=== PATIENT | female | born 2000 | race Caucasian/White ===

== ENCOUNTER 2023-05-10 19:29 | Inpatient (IN) | payer OTHER ==
[2023-05-10] MEDS ORDERED: Water For Irrigation,Sterile 1,000 ML Container IRR PRN (20:55)
[2023-05-10] MEDS ORDERED: Lidocaine 1% 50 ML MDV INJECT PRN (20:55)
[2023-05-10] MEDS ORDERED: Sodium Chloride 0.9% 2.5 ML Syringe FLUSH PRN (20:55)
[2023-05-10] MEDS ORDERED: Methylergonovine 0.2 MG/1 ML Amp IM PRN (20:55)
[2023-05-10] MEDS ORDERED: Misoprostol 200 MCG Tab PO PRN (20:55)
[2023-05-10] MEDS ORDERED: Sodium Chloride 0.9% 20 ML SDV IV PRN (20:55)
[2023-05-10] MEDS ORDERED: Ondansetron 4 MG/2 ML SDV IVPUSH PRN (20:55)
[2023-05-10] MEDS ORDERED: Carboprost Tromethamine 250 MCG/1 mL Vial IM PRN (20:55)
[2023-05-10] MEDS ORDERED: Tranexamic Acid IN NACL,ISO-OS 1,000 MG in Premix Bag 1 BAG IV PRN ×2 (20:55)
[2023-05-10] MEDS ORDERED: Sodium Chloride 0.9% 10 ML Syringe FLUSH PRN (20:55)
[2023-05-10] MEDS ORDERED: Terbutaline 1 MG/ML SDV SUBCUT PRN (20:55)
[2023-05-10] MEDS ORDERED: Oxytocin/0.9 % Sodium Chloride 30 UNIT/500 ML BAG IV SCH ×2 (21:00)
[2023-05-10 21:09] LABS: HEMATOCRIT 33.8 % (37.0-47.0); HEMOGLOBIN 11.6 g/dL (12.0-16.0); MEAN CORPUSCULAR HEMOGLOBIN 28.9 pg (28.0-32.0); MEAN CORPUSCULAR HGB CONC 34.3 g/dL (32.0-36.0); MEAN CORPUSCULAR VOLUME 84.1 fL (83.0-99.0); MEAN PLATELET VOLUME 10.5 fL (9.4-12.3); PLATELET COUNT,PLT 264 K/uL (150-400); RED BLOOD CELL COUNT 4.02 M/uL (4.10-5.30); WHITE BLOOD CELL COUNT,WBC 10.16 K/uL (3.9-11.3)
[2023-05-10] MEDS ORDERED: Nalbuphine 10 MG/0.5 ML Syringe IVPUSH SCH (21:15)
[2023-05-10] MEDS ORDERED: Misoprostol 25 MCG (1/4 of 100 MCG) Tab VAG PRN (22:00)
[2023-05-10] MEDS ORDERED: Ampicillin 2 GM in Sodium Chloride 0.9% 100 ML IV ONE (22:00)
[2023-05-10] MEDS ORDERED: ePHEDrine 50 MG/ML SDV IVPUSH PRN ×2 (22:39)
[2023-05-10] MEDS ORDERED: Phenylephrine HCl 0.5 MG/5 ML AMP IVPUSH PRN (22:39)
[2023-05-10] MEDS ORDERED: Ropivacaine HCl/PF 400 MG in Premix Bag 1 BAG EPIDUR SCH (22:45)
[2023-05-11] MEDS: Lactated Ringers 1,000 ML IV SCH ×2 (00:09→15:03)
[2023-05-11 00:16] LABS: AMPHETAMINES SCREEN, URINE NEGATIVE (CUTOFF=500); BARBITURATE SCREEN,URINE NEGATIVE (CUTOFF=200); BENZODIAZEPINES SCREEN,URINE NEGATIVE (CUTOFF=150); BUPRENORPHINE SCREEN,URINE NEGATIVE (CUTOFF=10); METHADONE SCREEN, URINE NEGATIVE (CUTOFF=200); METHAMPHETAMINES SCREEN, URINE NEGATIVE (CUTOFF=500); OXYCODONE SCREEN,URINE NEGATIVE (CUT0FF=100); PCP SCREEN,URINE NEGATIVE (CUTOFF=25); PROPOXYPHENE SCREEN,URINE NEGATIVE (CUTOFF=300); THC SCREEN,URINE 20 NG/ML NEGATIVE (CUTOFF=50)
[2023-05-11] MEDS ORDERED: Ampicillin 1 GM Vial IM SCH (02:00)
[2023-05-11] MEDS: Misoprostol 25 MCG (1/4 of 100 MCG) Tab VAG PRN ×5 (07:29→23:40)
[2023-05-11] MEDS: Ampicillin 1 GM in Sodium Chloride 0.9% 50 ML IV SCH ×5 (07:30→23:37)
[2023-05-12] MEDS: Lactated Ringers 1,000 ML IV SCH ×2 (02:00→10:48)
[2023-05-12] MEDS: Ampicillin 1 GM in Sodium Chloride 0.9% 50 ML IV SCH ×4 (03:39→16:00)
[2023-05-12] MEDS: Misoprostol 25 MCG (1/4 of 100 MCG) Tab VAG PRN ×2 (03:42→07:37)
[2023-05-12] MEDS ORDERED: Metoclopramide 10 MG/2 ML SDV ONE (17:13)
[2023-05-12] MEDS ORDERED: Phenylephrine 1% 10 MG/ML SDV ONE ×2 (17:13)
[2023-05-12] MEDS ORDERED: Morphine PF 10 MG/10 ML SDV ONE (17:13)
[2023-05-12] MEDS ORDERED: fentaNYL 100 MCG/2 ML SDV ONE (17:13)
[2023-05-12] MEDS ORDERED: Oxytocin 10 Units/1 ML SDV ONE ×3 (17:13)
[2023-05-12] MEDS ORDERED: droPERidol 5 MG/2 ML SDV ONE (17:13)
[2023-05-12] MEDS ORDERED: ceFAZolin 2 GM Vial ONE (17:13)
[2023-05-12] MEDS ORDERED: Ondansetron 4 MG/2 ML SDV ONE ×2 (17:13)
[2023-05-12] MEDS ORDERED: Ropivacaine 0.5% 5 MG/ML 30 ML SDV ONE (17:22)
[2023-05-12] MEDS ORDERED: Naloxone 0.4 MG/ML SDV IVPUSH PRN (17:43)
[2023-05-12] MEDS ORDERED: HYDROmorphone 1 MG/ML Syringe IVPUSH PRN (17:43)
[2023-05-12] MEDS ORDERED: Albuterol 0.083% 2.5 MG/3 ML Neb Soln NEB PRN (17:43)
[2023-05-12] MEDS ORDERED: Ondansetron 4 MG/2 ML SDV IVPUSH PRN ×3 (17:43→20:29)
[2023-05-12] MEDS ORDERED: Morphine 2 MG/ML SYRINGE IVPUSH PRN (17:43)
[2023-05-12] MEDS ORDERED: droPERidol 5 MG/2 ML SDV IVPUSH PRN (17:43)
[2023-05-12] MEDS ORDERED: ePHEDrine 50 MG/ML SDV IVPUSH PRN (17:43)
[2023-05-12] MEDS ORDERED: diphenhydrAMINE 50 MG/ML SDV IVPUSH PRN ×2 (17:43→20:29)
[2023-05-12] MEDS ORDERED: fentaNYL 50 MCG/ML SDV IVPUSH PRN (17:43)
[2023-05-12] MEDS ORDERED: Acetaminophen/oxyCODONE 325-5 MG Tab PO PRN ×3 (17:43→20:29)
[2023-05-12] MEDS ORDERED: fentaNYL 100 MCG/2 ML SDV IVPUSH PRN (17:43)
[2023-05-12] MEDS ORDERED: Metoclopramide 10 MG/2 ML SDV IVPUSH PRN (17:43)
[2023-05-12] MEDS ORDERED: ceFAZolin 1 GM Vial ONE (18:26)
[2023-05-12] MEDS ORDERED: Ketorolac 30 MG/ML SDV ONE (19:48)
[2023-05-12] MEDS ORDERED: Oxytocin 10 Units/1 ML SDV IM PRN (20:29)
[2023-05-12] MEDS ORDERED: Misoprostol 200 MCG Tab RECTAL PRN (20:29)
[2023-05-12] MEDS ORDERED: Acetaminophen 325 MG Tab PO PRN (20:29)
[2023-05-12] MEDS ORDERED: Lanolin 100% Cream 7 GM Tube TOP PRN (20:29)
[2023-05-12] MEDS ORDERED: Methylergonovine 0.2 MG/1 ML Amp IM PRN (20:29)
[2023-05-12] MEDS ORDERED: Bisacodyl 10 MG Supp RECTAL PRN (20:29)
[2023-05-12] MEDS ORDERED: Oxytocin/0.9 % Sodium Chloride 30 UNIT/500 ML BAG IV SCH (20:30)
[2023-05-12] MEDS ORDERED: Lactated Ringers 1,000 ML IV SCH (20:30)
[2023-05-12] MEDS ORDERED: Ketorolac 30 MG/ML SDV IVPUSH SCH (20:30)
[2023-05-12] MEDS ORDERED: oxyCODONE 5 MG Tab PO PRN (20:42)
[2023-05-13] MEDS ORDERED: Acetaminophen 1,000 MG in Premix Bag 1 BAG IV SCH (01:00)
[2023-05-13] MEDS: Acetaminophen 1,000 MG in Premix Bag 1 BAG IV SCH ×4 (02:39→19:42)
[2023-05-13] MEDS: Ketorolac 30 MG/ML SDV IVPUSH SCH ×4 (03:00→21:27)
[2023-05-13] MEDS: Docusate Sodium 100 MG Cap PO SCH ×3 (03:36→21:28)
[2023-05-13 06:38] LABS: HEMATOCRIT 29.5 % (37.0-47.0); HEMOGLOBIN 9.9 g/dL (12.0-16.0)
[2023-05-13] MEDS ORDERED: Cephalexin 500 MG Cap PO SCH (08:15)
[2023-05-13] MEDS: metroNIDAZOLE 250 MG Tab PO SCH ×3 (08:40→23:56)
[2023-05-13] MEDS: Cephalexin 500 MG Cap PO SCH ×2 (09:58→16:38)
[2023-05-13] MEDS: Sodium Ferric Gluconate Cmplex 125 MG in Sodium Chloride 0.9% 100 ML IV SCH (09:58)
[2023-05-14] MEDS: Cephalexin 500 MG Cap PO SCH ×3 (00:28→16:31)
[2023-05-14] MEDS ORDERED: Ibuprofen 800 MG Tab PO PRN (03:00)
[2023-05-14] MEDS: metroNIDAZOLE 250 MG Tab PO SCH ×2 (08:29→16:07)
[2023-05-14] MEDS: Docusate Sodium 100 MG Cap PO SCH ×2 (08:29→20:34)
[2023-05-14] MEDS: Sodium Ferric Gluconate Cmplex 125 MG in Sodium Chloride 0.9% 100 ML IV SCH (10:01)
[2023-05-14] MEDS: Ibuprofen 800 MG Tab PO SCH ×2 (13:36→20:34)
== END 2023-05-14 21:00 | disposition home or self-care (01) | DRG 788 ==
LOC: MW.OB 19:29 → OBSVTOIN 05-12 20:30 → MW.OB 05-12 23:59
PROVIDERS: ADMIT Obstetrics & Gynecology; ATTEND Obstetrics & Gynecology
PROC: 10D00Z1 Extraction of Products of Conception, Low, Open Approach (ICD-10-PCS; principal; 2023-05-12)
DX: O48.0 Post-term pregnancy (principal); O99.824 Streptococcus B carrier state complicating childbirth; O99.214 Obesity complicating childbirth; E66.01 Morbid (severe) obesity due to excess calories; O36.63X0 Maternal care for excessive fetal growth, third trimester, not applicable or unspecified; O61.9 Failed induction of labor, unspecified; O33.1 Maternal care for disproportion due to generally contracted pelvis; Z3A.40 40 weeks gestation of pregnancy; Z37.0 Single live birth; Z86.16 Personal history of COVID-19
CPT/HCPCS: 36415; 59025; 76818; 76818-26; 80305-QW; 85014; 85018; 85027; 86592; 86850; 86900; 86901; A9270-GY; J0131; J0290; J0690; J1200; J1790; J1885; J2274; J2371; J2405; J2590; J2765; J2795; J2916; J3010; J3490; J7120

== ENCOUNTER 2024-05-12 08:06 | Day surgery (SDC) | payer OTHER ==
[2024-05-12] MEDS: Lactated Ringers 1,000 ML IV SCH (08:24)
[2024-05-12] MEDS ORDERED: Ondansetron 4 MG/2 ML SDV ONE (08:36)
[2024-05-12] MEDS ORDERED: Scopalamine 1mg/3day Transdermal Patch ONE (08:36)
[2024-05-12] MEDS ORDERED: Midazolam 1 MG/ML 2 ML SDV ONE (08:36)
[2024-05-12] MEDS ORDERED: Propofol 200 MG/20 ML SDV ONE (08:49)
[2024-05-12] MEDS ORDERED: Lidocaine 2% 5 ML SDV ONE (08:50)
[2024-05-12] MEDS ORDERED: Metoclopramide 10 MG/2 ML SDV IVPUSH PRN (09:06)
[2024-05-12] MEDS ORDERED: Albuterol 0.083% 2.5 MG/3 ML Neb Soln NEB PRN (09:06)
[2024-05-12] MEDS ORDERED: Naloxone 0.4 MG/ML SDV IVPUSH PRN (09:06)
[2024-05-12] MEDS ORDERED: Morphine 2 MG/ML SYRINGE IVPUSH PRN (09:06)
[2024-05-12] MEDS ORDERED: HYDROmorphone 1 MG/ML Syringe IVPUSH PRN (09:06)
[2024-05-12] MEDS ORDERED: Phenylephrine HCl In 0.9% NaCl 1 MG/10 ML Syringe IVPUSH PRN (09:06)
[2024-05-12] MEDS ORDERED: fentaNYL 50 MCG/ML SDV IVPUSH PRN (09:06)
[2024-05-12] MEDS ORDERED: Ondansetron 4 MG/2 ML SDV IVPUSH PRN (09:06)
[2024-05-12] MEDS ORDERED: fentaNYL 100 MCG/2 ML SDV ONE (09:17)
== END 2024-05-12 10:20 | disposition home or self-care (01) ==
LOC: MW.SDS 08:06
PROVIDERS: ATTEND Obstetrics & Gynecology
DX: T83.39XA Other mechanical complication of intrauterine contraceptive device, initial encounter (principal); Z87.891 Personal history of nicotine dependence; Y83.9 Surgical procedure, unspecified as the cause of abnormal reaction of the patient, or of later complication, without mention of misadventure at the time of the procedure
CPT/HCPCS: 58562; 81025; A9270; J2250; J2405; J2704; J3010; J7120; 00952; J3490